=== PATIENT | female | born 1935 | race Caucasian/White ===

== ENCOUNTER 2019-03-31 10:55 | Inpatient (IN) | payer MEDICARE, OTHER ==
[~2019-03-31] VITALS: Ht 157.5 cm; Wt 57.2 kg
[2019-03-31] MEDS ORDERED: acetaminophen PO (11:29)
[2019-03-31] MEDS ORDERED: NICOTINE TRANSD14 M1 TRANSDERM (11:30)
[2019-03-31] MEDS ORDERED: LOTREL 5-20 MG1 EACH PO (11:31)
[2019-03-31] MEDS ORDERED: ASA81BEC PO (11:32)
[2019-03-31] MEDS ORDERED: METFORMIN HCL500 MG PO (11:33)
[2019-03-31 14:30] VITALS: BP 122/63
--- NOTE | 2019-03-31 18:49 | NUR ---
ASSUMMED CARE OF PT AT 1430, PT ALERT, FORGETFUL, HAS SLING AND ICE BAG TO RIGHT ARM, DENIES NUMBNESS OR TINGLING TO RIGHT FINGERS, UP WITH SBA AND GB, AMBULATED TO BATHROOM TO VOID, PT STATES HAD BM YESTERDAY, PT IS ELEM AND WEARS HEARING AIDES, PT DENIES NEED FOR PAIN MEDICATION, PT TAKING FOOD AND FLUIDS WELL, PT AND FAMILY ORIENTED TO REHAB ROUTINE, VSS, ASSESSMENT COMPLETE, HOURLY ROUNDING COMPLETE, WILL CONTINUE TO MONITOR.
[2019-03-31 19:15] VITALS: BP 126/74
--- NOTE | 2019-04-01 01:58 | NUR ---
ASSUMED CARE @ 1929-.SITS IN BSCHAIR BY WINDOW.SON VISITING.SLING IN PLACE LEFT ARM.BED ALARM PUT ON @ 2119/HOB UP.LEFT SHOULDER UP ON A PILLOW WHILE IN BED.SEE PAIN MANAGEMENT @ 2138.NWB OBSERVED LUE.ON HOURLY ROUNDS. 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
[2019-04-01 04:06] LABS: HEMATOCRIT 32.9 % (37.0-47.0); HEMOGLOBIN 11.3 gm/dL (12.0-15.0); MCH 31.5 pg (26.0-34.0); MCHC 34.5 g/dL (28.0-37.0); MCV 91.4 fL (80.0-100.0); MPV 8.8 fl. (7.2-11.1); RBC 3.59 mil/uL (4.20-5.00); RDW-CV 13.9 % (10.5-14.5); WBC 8.9 thou/uL (4.0-11.0)
[2019-04-01 04:21] LABS: CALCIUM 8.4 mg/dL (8.5-10.1); CREATININE 0.5 mg/dL (0.6-1.3); POTASSIUM 3.7 mmol/L (3.5-5.1)
--- NOTE | 2019-04-01 05:31 | NUR ---
SLEPT LATE @ 0200-04/01-.AWAKE MOST OF TIME.REFUSED HS SNACK.BRP X3 DURING NIGHT.
[2019-04-01 08:00] VITALS: BP 118/70
--- NOTE | 2019-04-01 17:10 | NUR ---
SW met with pt and pt son Jalil to complete initial assessment, introduce self, and SW role on inpt rehab unit. Pt alert, oriented, pleasant. Pt lives at home alone and has family support. Pt plans to dc to [facility] for the step down unit prior to transition home. Pt has RW, cane but has not used AD to ambulate. Pt was independent prior to hospitalization. Pt has shoulder sling from [facility]. SW provided welcome packet and pt signed irf kaylee consent. SW to continue to follow to assist with safe dc planning.
--- NOTE | 2019-04-01 18:00 | NUR ---
AM ASSESSMENT AND VITAL SIGNS COMPLETED DOCUMENTED. PT HAS WORKED WITH ALL THERAPIES TODAY, NO C/O PAIN OR DISCOMFORT. PT'S LEFT ARM IN SLING AND NON WT BEARING STATUS HAS BEEN MAINTAINED. FALL PRECAUTIONS AND HOURLY ROUNDING CONTINUE.
[2019-04-01 20:00] VITALS: BP 122/66
--- NOTE | 2019-04-02 05:45 | NUR ---
ASSUMED PT CARE AT 1930. PT SITTING UP IN RECLINER WATCHING TELEVISION AT SHIFT CHANGE. PT LEFT ARM IN SLING. NWB ON LUE. PT VERY [place]ENTAST[place]. PT UP WITH SBA, GAIT BELT AND WALKER. PRN TYLENOL X1 FOR SHOULDER PAIN. PT SLEPT WELL OVERNIGHT. USES CALL LIGHT APPROPRIATELY. CALL LIGHT AND FREQUENTLY USED ITEMS IN REACH. BED ALARM ON FOR SAFETY. HOURLY ROUNDING IN PROGRESS, WILL CONTINUE TO MONITOR.
[2019-04-02 08:17] VITALS: BP 122/75
--- NOTE | 2019-04-02 11:46 | NUR ---
Nutrition: Pt admitted to rehab with shoulder FX/pain/acitvity impairment. No surgery. CHO controled diet ordered. No albumin recorded. Very [place]. BG ok. Wt: 127#. No nutrition concerns at this time. Low risk. Will follow weekly.
--- NOTE | 2019-04-02 16:51 | NUR ---
I have reviewed the documentation by CARMEN CADE from 04/02/19 to 04/02/19 and I concur with it. DOMINIQUE GOMEZ
[2019-04-02 20:22] VITALS: BP 148/82
--- NOTE | 2019-04-03 02:43 | NUR ---
ASSUMED CARE @ 1941-04/02-FRI.SITS BY WINDOW ON BSCHAIR WATCHING TV.WEARING MOR.HEARING AIDS NOW.SLING LUE.CHAIR ALARM ALREADY ON @ 1941.NWB LUE OBSERVED. 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
--- NOTE | 2019-04-03 07:37 | NUR ---
SLEEPING SINCE 2139.BRP X4.TOOK ALL YAZAN.ICE CREAM HS SNACKS.
[2019-04-03 08:21] VITALS: BP 133/76
--- NOTE | 2019-04-03 17:02 | NUR ---
ASSUMMED CARE OF PT AT 0730, PT ALERT AND ORIENTED, FORGETFUL, [place], PT TRANSERS WITH SBA, GB, NEEDS SLIGHT LIFTING ASSIST AT TIMES, TAKING FOOD AND FLUIDS WELL, SLING TO LEFT ARM, PT C/O PAIN IN LEFT ARM, MEDICATED WITH TYLENOL X 1 FOR PAIN, WIGGLES FINGERS WELL, SOME SWELLING NOTED IN LEFT ARM, AMBULATED TO BATHROOM TO VOID, BM X 2 THIS SHIFT, AMB TO DININGROOM FOR LUNCH, NWB STATUS TO LEFT ARM MAINTAINED, PARTICIPATED IN ALL THERAPIES, HOURLY ROUNDING COMPLETED, ASSESSMENT COMPLETE, WILL CONTINUE TO MONITOR.
[2019-04-03 20:00] VITALS: BP 160/76
--- NOTE | 2019-04-04 05:36 | NUR ---
ASSUMED CARES AT 1920. ALERT AND ORIENTED. SLING TO BHAVESH. NWB BHAVESH. APAP GIVEN FOR LEFT ARM PAIN. MIN ASSIST WITH GAIT BELT. UP TO BATHROOM. SLEPT MOST OF THE NIGHT. CALL LIGHT IN REACH AND BED ALARM ON.
[2019-04-04 05:59] LABS: CALCIUM 8.4 mg/dL (8.5-10.1); CREATININE 0.5 mg/dL (0.6-1.3); MAGNESIUM 1.7 mg/dL (1.8-2.4); POTASSIUM 3.7 mmol/L (3.5-5.1)
[2019-04-04 08:00] VITALS: BP 125/64
--- NOTE | 2019-04-04 17:03 | NUR ---
ASSUMMED CARE OF PT AT 0730, PT ALERT AND ORIENTED, FORGETFUL, TRANSFERS WITH SBA, GB, AMBULATES TO BATHROOM, SMALL BM X 1 THIS SHIFT, SLING TO LEFT ARM, CMS INTACT TO LEFT FINGERS, NWB TO LEFT ARM MAINTAINED, UP IN CHAIR ALL SHIFT, MG+ LOW, INFORMED PHYSICIAN, STARTED ON ELECTROLYTE PROTOCAL, PT DID GROOMING AT SINK AND DRESSED SELF WITH MIN ASSIST, REFUSED BATH THIS SHIFT, ASSESSMENT COMPLETE, HOURLY ROUNDING COMPLETE, WILL CONTINUE TO MONITOR.
--- NOTE | 2019-04-05 05:12 | NUR ---
ASSUMED CARES AT 1920. ALERT AND ORIENTED. PLEASANT BUT FORGETFUL. C/O PAIN TO LEFT ARM. TYLENOL GIVEN NEEDED. NWB BHAVESH IN SLING. SBA WITH GAIT BELT. UP TO BATHROOM. SLEPT OFF AND ON. CALL LIGHT IN REACH AND BED ALARM ON.
[2019-04-05 08:04] VITALS: BP 126/71
--- NOTE | 2019-04-05 13:53 | NUR ---
ASSUMED CARE AT 0730. ALERT ORIENTED PLEASANT COOPERATIVE. HX. OF L HUMERAL FX WEARS SLING CONTINOUSLY NWBLUE. TRANSFERS WITH SBA G BELT NO ASSISTIVE DEVICE. AMBULATES TO BR TO VOID AND IS ABLE TO DO HYGEINE AND CLOTHING ADJUSTMENTS. L ARM AND HAND BRUISED. NEEDS SOME ASSIST WITH SET UP OF MEALS FEEDS SELF TAKES MEDS WITHOUT DIFFICULTY. CHAIR AND BED ALARM FOR PT. SAFETY. USES CALL LIGHT APPROPRIATELY FOR ASSIST. DENIES NEED FOR PAIN MEDS WHEN OFFERED. PARTICIPATING WITH THERAPIES. SON GINI VISITING AT 1200.
[2019-04-05 20:00] VITALS: BP 123/67
--- NOTE | 2019-04-06 05:38 | NUR ---
ASSUMED CARES AT 1920. ALERT AND ORIENTED BUT FORGETFUL AT TIMES. BHAVESH IN SLING AND NWB. MIN ASSIST WITH GAIT BELT. UP TO BATHROOM. DENIED ANY NEED FOR PAIN MED. SLEPT MOST OF THE NIGHT. CALL LIGHT IN REACH AND BED ALARM ON.
[2019-04-06 08:00] VITALS: BP 140/77
--- NOTE | 2019-04-06 13:58 | NUR ---
ASSUMED CARE AT 0730. ALERT ORIENTED PLEASANT COOPERATIVE. HX OF L HUMERAL FX NWBLUE WEARS SLING CONTINOUSLY. TRANSFERS WITH SBA G BELT AND AMBULATES TO BR TO VOID ABLE TO DO HYGEINE AND CLOTHING ADJUSTMENTS. USES CALL LIGHT APPROPRIATELY FOR ASSIST. FEEDS SELF WITH MIN SET UP APPETITE GOOD. DENIES NEED FOR PAIN MEDS WHEN OFFERED. UP IN CHAIR AT BEDSIDE.
[2019-04-06 20:27] VITALS: BP 123/68
--- NOTE | 2019-04-07 05:05 | NUR ---
ASSUMED PT CARE AT 1930. PT ALERT AND ORIENTED X4, POLITE AND COOPERATIVE WITH CARES. BHAVESH IN SLING AND NWB TO BHAVESH. TYLENOL ONCE FOR ARM PAIN. PT UP WITH MIN ASSIST AND GAIT BELT TO BATHROOM TO VOID X3. PT IS HYDABURG. SLEPT MOST OF THE NIGHT. USES CALL LIGHT APPROPRIATELY. BED ALARM ON FOR SAFETY. HOURLY ROUNDING IN PROGRESS, WILL CONTINUE TO MONITOR.
[2019-04-07 06:23] LABS: CALCIUM 8.5 mg/dL (8.5-10.1); CREATININE 0.5 mg/dL (0.6-1.3); MAGNESIUM 1.7 mg/dL (1.8-2.4); PHOSPHORUS* 3.3 mg/dL (2.5-4.9); POTASSIUM 3.9 mmol/L (3.5-5.1)
[2019-04-07 08:35] VITALS: BP 147/84
--- NOTE | 2019-04-07 17:30 | NUR ---
PT.AND SON AT TABLE IN DINING ROOM,WAITING FOR HER SUPPER TO COME. DISCUSSED DISCHARGE TO [facility]. EXPLAINED TO THEM THAT [facility] CAN ACCEPT HER ON FRIDAY. ORIGINALLY DISCHARGE WAS TO BE AFTERNOON AFTER TB SKIN TEST READ. THEY WERE BOTH AGREEABLE. SON SAID HE WOULD LET HIS BROTHER KNOW. PT.WILL NEED HOME HEALTH FOR OT. SON SAID THEY CAN TRANSPORT HER TO [facility] ON FRIDAY. TB SKIN TEST TO BE READ AT NOON TOMORROW. [facility]IANS MEDICAL EVAL FOR [facility] TO BE COMPLETED AND FAXED BACK TO [facility] TOMORROW.
--- NOTE | 2019-04-07 18:25 | NUR ---
AM ASSESSMENT AND VITAL SIGNS COMPLETED DOCUMENTED. PT WILL BE GOING TO [facility] ON FRIDAY. FALL PRECAUTIONS AND HOURLY ROUNDING CONTINUE.
--- NOTE | 2019-04-08 05:28 | NUR ---
ASSUMED PT CARE AT 1930. PT ALERT AND ORIENTED X4, POLITE AND COOPERATIVE WITH CARES. TYLENOL ONCE OVERNIGHT FOR LEFT ARM PAIN. STOOL X1 THIS SHIFT. SLING TO LEFT ARM, NWB ULE. TB TEST TO READ TODAY AT NOON. PT TO DISCHARGE TO [facility] ON FRIDAY. USES CALL LIGHT APPROPRIATELY. BED ALARM ON FOR SAFETY. HOURLY ROUNDING IN PROGRESS, WILL CONTINUE TO MONITOR.
[2019-04-08 08:40] VITALS: BP 127/78
--- NOTE | 2019-04-08 18:19 | NUR ---
AM ASSESSMENT AND VITAL SIGNS COMPLETED DOCUMENTED. PT IS READY FOR DISCHARGE AND WILL BE GOING TO [facility]. FALL PRECAUTIONS AND HOURLY ROUNDING CONTINUE.
[2019-04-08 20:23] VITALS: BP 113/71
[2019-04-08] MEDS ORDERED: MAGNESIUM400 MG PO (23:41)
[2019-04-08] MEDS ORDERED: LISINOPRIL20 MG PO (23:41)
--- NOTE | 2019-04-09 05:05 | NUR ---
ASSUMED CARES AT 1920. ALERT AND ORIENTED. BUT CAN BE FORGETFUL. PLEASANT. TYLENOL GIVEN FOR LEFT ARM PAIN. NWBLUA IN SLING. SBA WITH GAIT BELT. UP TO BATHROOM. SLEPT WELL. CALL LIGHT IN REACH AND BED ALARM ON.
[2019-04-09 07:00] VITALS: BP 123/69
[2019-04-09 10:51] VITALS: BP 123/69
[2019-04-09 13:38] VITALS: BP 123/69
--- NOTE | 2019-04-09 13:40 | NUR ---
Pt to dc to [facility] step down program today; pt son to provide pt ride. [facility] faxed needed info to [facility]. [facility]TON discussed HH services to follow and arranged with pt/family preference of [facility]. [facility] faxed referral, order, med list, dc summary to [facility] [phone] fax [phone]
--- NOTE | 2019-04-09 14:15 | NUR ---
ASSUMMED CARE OF PT AT 0730, PT ALERT AND ORIENTED, FORGETFUL, ELEM, PT AMBULATES TO BATHROOM TO VOID, BM X 1 PER TOILET, TAKING FOOD AND FLUIDS WELL, DENIES PAIN,MAINTAINING NWB STATUS TO LEFT ARM, SLING TO ARM, PARTICIPATED IN ALL THERAPIES, HOURLY ROUNDING COMPLETED, ORDERS OBTAINED FOR DISCHARGE, NEW MEDICATIONS CALLED INTO [facility] PER [facility] REQUEST, FAMILY WILL BRING OTHER MEDS TO [facility], INCLUDING TYLENOL AND BABY ASPIRIN FOR PT, DISCUSSED MEDICATIONS, FOLLOW UP APPTS, HOME HEALTH WITH PT AND SON, PT DISCHARGED PER W/C WITH SON TO MAIN ENTRANCE.
== END 2019-04-09 14:00 | disposition home health service (06) | DRG 563 ==
LOC: M.REH 10:55
PROVIDERS: Family Medicine; ADMIT Physical Medicine & Rehabilitation
DX: S42.212A Unspecified displaced fracture of surgical neck of left humerus, initial encounter for closed fracture (principal); E87.1 Hypo-osmolality and hyponatremia; I10 Essential (primary) hypertension; E11.9 Type 2 diabetes mellitus without complications; F17.210 Nicotine dependence, cigarettes, uncomplicated; D64.9 Anemia, unspecified; W01.0XXA Fall on same level from slipping, tripping and stumbling without subsequent striking against object, initial encounter; Z90.49 Acquired absence of other specified parts of digestive tract; Z85.3 Personal history of malignant neoplasm of breast; Z90.12 Acquired absence of left breast and nipple; Z92.21 Personal history of antineoplastic chemotherapy; Y92.511 Restaurant or cafe as the place of occurrence of the external cause; Y92.89 Other specified places as the place of occurrence of the external cause; Y99.8 Other external cause status; Z79.899 Other long term (current) drug therapy; Z79.82 Long term (current) use of aspirin; Z79.84 Long term (current) use of oral hypoglycemic drugs; Z71.6 Tobacco abuse counseling